=== PATIENT | male | born 1990 | race Caucasian/White ===

== ENCOUNTER 2022-01-24 19:55 | Inpatient (IN) | payer MEDICAID ==
[~2022-01-24] VITALS: Ht 170.2 cm; Wt 63.5 kg
[2022-01-24 19:55] VITALS: BP 124/73
[2022-01-24 20:00] VITALS: BP 124/73
[2022-01-24] MEDS ORDERED: ONDANSETRON HCL 4MG/2ML INJ IV PRN (20:45)
[2022-01-24] MEDS ORDERED: LORAZEPAM 2MG/ML CPJ IV PRN (20:45)
[2022-01-24] MEDS ORDERED: FAMOTIDINE 20MG TABLET PO NR (21:00)
[2022-01-24] MEDS: QUETIAPINE FUMARATE 50MG TABLET PO SCH (21:55)
[2022-01-25 06:49] LABS: EOSINOPHILS % 2.1 % (0.0-5.0); HEMATOCRIT. 34.3 % (42.0-52.0); HEMOGLOBIN. 11.6 g/dL (14.0-18.0); LYMPHOCYTES % 26.2 % (20.0-50.0); MEAN CORPUSCULAR HEMOGLOBIN 31.7 pg (28.0-32.0); MEAN CORPUSCULAR VOLUME 93.8 fL (80.0-94.0); MEAN PLATELET VOLUME 6.7 fl (7.4-10.4); MONOCYTES % 10.5 % (2.0-8.0); NEUTROPHILS % 60.2 % (40.0-76.0); PLATELET 586 x1000/uL (130-400); RED BLOOD CELL COUNT 3.66 mill/uL (4.7-6.1); RED CELL DISTRIBUTION WIDTH 14.9 % (11.6-14.6)
[2022-01-25 07:07] LABS: CHLORIDE 105 mEq/L (98-107)
[2022-01-25 08:00] VITALS: BP 118/69
[2022-01-25] MEDS ORDERED: HEPARIN 5000 UNITS/ML VIAL SUBCUT SCH (08:00)
[2022-01-25] MEDS: QUETIAPINE FUMARATE 50MG TABLET PO SCH ×2 (09:17→20:49)
[2022-01-25] MEDS: FAMOTIDINE 20MG TABLET PO SCH ×2 (09:17→20:49)
[2022-01-25] MEDS ORDERED: DOCUSATE SODIUM 250MG CAPSULE PO PRN (12:15)
[2022-01-25] MEDS ORDERED: ACETAMINOPHEN 325MG TABLET PO PRN (12:15)
[2022-01-25] MEDS ORDERED: ENOXAPARIN 30MG/0.3ML SYR SUBCUT SCH (12:15)
[2022-01-25] MEDS ORDERED: ENOXAPARIN 40MG/0.4ML SYR SUBCUT SCH (13:00)
[2022-01-25 20:00] VITALS: BP 105/57
[2022-01-26 08:00] VITALS: BP 120/66
[2022-01-26] MEDS: QUETIAPINE FUMARATE 50MG TABLET PO SCH ×2 (09:22→20:15)
[2022-01-26] MEDS: FAMOTIDINE 20MG TABLET PO SCH ×2 (09:22→20:15)
[2022-01-26] MEDS: ENOXAPARIN 30MG/0.3ML SYR SUBCUT SCH (09:23)
[2022-01-26] MEDS ORDERED: LACTULOSE 20G/30ML UDC PO SCH (16:30)
[2022-01-26] MEDS ORDERED: BISACODYL 5MG TABLET PO PRN (17:00)
[2022-01-26] MEDS ORDERED: LACTULOSE 20G/30ML UDC PO PRN ×2 (17:00→18:00)
[2022-01-26 20:00] VITALS: BP 111/62
[2022-01-27 07:38] VITALS: BP 127/64
[2022-01-27] MEDS: ENOXAPARIN 30MG/0.3ML SYR SUBCUT SCH (09:00)
[2022-01-27] MEDS: FAMOTIDINE 20MG TABLET PO SCH ×2 (10:17→21:37)
[2022-01-27] MEDS: QUETIAPINE FUMARATE 50MG TABLET PO SCH ×2 (10:17→21:37)
[2022-01-27 20:00] VITALS: BP 126/60
[2022-01-28 08:00] VITALS: BP 125/68
[2022-01-28] MEDS: QUETIAPINE FUMARATE 50MG TABLET PO SCH ×2 (09:17→20:40)
[2022-01-28] MEDS: ENOXAPARIN 30MG/0.3ML SYR SUBCUT SCH (09:17)
[2022-01-28] MEDS: FAMOTIDINE 20MG TABLET PO SCH ×2 (09:17→20:40)
[2022-01-28 19:45] VITALS: BP 109/83
[2022-01-29] MEDS: FAMOTIDINE 20MG TABLET PO SCH ×2 (09:35→21:18)
[2022-01-29] MEDS: QUETIAPINE FUMARATE 50MG TABLET PO SCH ×2 (09:35→21:18)
[2022-01-29] MEDS: ENOXAPARIN 30MG/0.3ML SYR SUBCUT SCH (09:36)
[2022-01-29 20:00] VITALS: BP 112/72
[2022-01-30 08:00] VITALS: BP 105/60
[2022-01-30] MEDS: ENOXAPARIN 30MG/0.3ML SYR SUBCUT SCH (09:07)
[2022-01-30] MEDS: QUETIAPINE FUMARATE 50MG TABLET PO SCH (09:08)
[2022-01-30] MEDS: FAMOTIDINE 20MG TABLET PO SCH (09:08)
[2022-01-30 14:28] VITALS: BP 111/62
== END 2022-01-30 16:27 | disposition home health service (06) | DRG 55 ==
PROVIDERS: ADMIT Psychiatry & Neurology Neurology; ATTEND Hospitalist
DX: S06.5X0A Traumatic subdural hemorrhage without loss of consciousness, initial encounter (principal); G93.40 Encephalopathy, unspecified; S01.01XA Laceration without foreign body of scalp, initial encounter; S51.011A Laceration without foreign body of right elbow, initial encounter; S02.85XA Fracture of orbit, unspecified, initial encounter for closed fracture; F06.34 Mood disorder due to known physiological condition with mixed features; F12.90 Cannabis use, unspecified, uncomplicated; I10 Essential (primary) hypertension; R45.87 Impulsiveness; F17.210 Nicotine dependence, cigarettes, uncomplicated; Y93.01 Activity, walking, marching and hiking; F43.11 Post-traumatic stress disorder, acute; V03.10XA Pedestrian on foot injured in collision with car, pick-up truck or van in traffic accident, initial encounter; Y92.410 Unspecified street and highway as the place of occurrence of the external cause; Y99.8 Other external cause status; Z86.16 Personal history of COVID-19; S09.8XXA Other specified injuries of head, initial encounter
CPT/HCPCS: 36415; 80048; 85025; 92523; 93970; 97110; 97116; 97163; 97166; 97530; 97535; J1650